=== PATIENT | female | born 1990 | race Two or more races ===

== ENCOUNTER → 2020-04-23 | Outpatient (CLI) | payer SELFPAY | LOC: M LABSMTC 09:21 | PROVIDERS: ATTEND Pediatrics | DX: Z20.822 Contact with and (suspected) exposure to COVID-19 (principal) ==

== ENCOUNTER 2020-05-05 05:44 | Emergency (ER) | payer BC, SELFPAY ==
[~2020-05-05] VITALS: Ht 167.6 cm; Wt 99.5 kg
[2020-05-05] MEDS ORDERED: ACETAMINOPHEN 325 MG TAB PO ONE (07:00)
[2020-05-05] MEDS ORDERED: KETOROLAC 30 MG/ML 1ML VIAL IM ONE (07:00)
--- OUTSIDE RECORDS SUMMARY | 2020-05-05 07:09 | CCD ---
Author Author Fabi Murphy Organization Unknown Address [address] [place] [address] Phone Care Team Providers Care Slot Key Person Name Role Phone Angie Murphy PCP Allergies, Adverse Reactions, Alerts No Data in Section Problem List Concept Problem Description Status Start Date Created Date Resolv ed Date Snomed Code F32.9 Unspecified depressive Disorder Active 04/27/19 21 F41.9 Unspecified Anxiety Disorder Active 04/27/2020 Medications No Data in Section Social History Social History Element Description Concept Effective Date Smoking Status Unknown if ever smoked [id number] Immunizations No Data in Section Vital Signs No Data in Section Procedures Date Concept Id Description Targeted Site Concept Targeted Site Concept Type 04/26/2020 77124 Extended Individual Psychotherapy - 45 min CPT Patient has no history of implantable de vices Encounters Encounter Start Date End Date Encounter Type Description Diagnosis Di agnosis Desc Location Author First Name Author Last Name Npid Taxonomy Cod e Taxonomy Desc Phone Number Location Addr1 Location Addr2 Location [facility] Location [facility] Location [facility] [id number] 04/26/2020 04/26/2020 27855 Extended Individual Psych otherapy - 45 min F32.9 Major depressive disorder, single episode, unspecified [facility] Jeffrey Adams [id number] [id number] 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
--- OUTSIDE RECORDS SUMMARY | 2020-05-05 07:09 | CCD ---
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 Equipment Mechanic Name Role Phone Angie Murphy PCP Allergies, Adverse Reactions, Alerts No Data in Section Problem List Concept Problem Description Status Start Date Created Date Resolv ed Date Snomed Code F32.9 Unspecified depressive Disorder Active 04/13/19 21 F41.9 Unspecified Anxiety Disorder Active 04/13/2020 Medications No Data in Section Social History Social History Element Description Concept Effective Date Smoking Status Unknown if ever smoked [id number] Immunizations No Data in Section Vital Signs No Data in Section Procedures Date Concept Id Description Targeted Site Concept Targeted Site Concept Type 04/13/2020 52570 Extended Individual Psychotherapy - 45 min CPT Patient has no history of implantable de vices Encounters Encounter Start Date End Date Encounter Type Description Diagnosis Di agnosis Desc Location Author First Name Author Last Name Npid Taxonomy Cod e Taxonomy Desc Phone Number Location Addr1 Location Addr2 Location [facility] Location [facility] Location Zip [id number] 04/13/2020 04/13/2020 79525 Extended Individual Psych otherapy - 45 min F32.9 Major depressive disorder, single episode, unspecified [facility] Jeffrey Adams 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
--- OUTSIDE RECORDS SUMMARY | 2020-05-05 07:09 | CCD ---
Author Author Fabi Murphy Organization Unknown Address [address] [place] [address] Phone Care Team Providers Care Valving Machine Operator Name Role Phone Angie Murphy PCP Allergies, Adverse Reactions, Alerts No Data in Section Problem List Concept Problem Description Status Start Date Created Date Resolv ed Date Snomed Code F32.9 Unspecified depressive Disorder Active 03/23/20 20 Medications No Data in Section Social History Social History Element Description Concept Effective Date Smoking Status Unknown if ever smoked [id number] Immunizations No Data in Section Vital Signs No Data in Section Procedures Date Concept Id Description Targeted Site Concept Targeted Site Concept Type 03/22/2020 18296 Psychiatric Diagnostic Evaluation (Non-Medical) CPT Patient has no history of implantable de vices Encounters Encounter Start Date End Date Encounter Type Description Diagnosis Di agnosis Desc Location Author First Name Author Last Name Npid Taxonomy Cod e Taxonomy Desc Phone Number Location Addr1 Location Addr2 Location [facility] Location [facility] Location [facility] [id number] 03/22/2020 03/22/2020 44035 Psychiatric Paula gnostic Evaluation (Non-Medical) F32.9 Major depressive disorder, single episod e, unspecified [facility] Jeffrey Bernsteinica 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
--- OUTSIDE RECORDS SUMMARY | 2020-05-05 07:09 | CCD | Continuity of Care Document ---
Author Author Fabi BETH Organization Unknown Address [address] [place] [address] [place] [address] Phone [phone] Care Team Providers Care Art Dealer Name Role Phone [employer] AUTM [phone] Problems Description No Information Available Social History Type Date Description Comments Sex Unknown ETOH Use Occasionally consumes alcohol Tobacco Use Start: Unknown End: Unknown Patient is a former smoker Smoking Status Reviewed: 03/21/20 Patient is a former smoker Allergies, Adverse Reactions, Alerts Active Allergies Reaction Severity Comments Date Penicillins 11/20/2019 Medications Active Medications SIG Qnty Indications Ordering Provide r Date Nexplanon 68mg Implant Unknown Immunizations CPT Code Status Date Vaccine Lot # [id number] Given 11/18/2019 PPD- TB Intradermal Test [id number] Vital Signs Date Vital Result Comment 03/21/2020 9:21am BP Systolic 118 mmHg BP Diastolic 79 mmHg Heart Rate 85 /min Respiratory Rate 16 /min O2 % BldC Oximetry 98 % Body Temperature 98.1 F Weight 215.00 lb Height 67 inches 5'7" BMI (Body Mass Index) 33.7 kg/m2 Pain Level 5 11/20/2019 6:26pm BP Systolic 112 mmHg BP Diastolic 68 mmHg Heart Rate 97 /min Respiratory Rate 18 /min O2 % BldC Oximetry 99 % Body Temperature 98.5 F Weight 217.00 lb Height 65 inches 5'5" BMI (Body Mass Index) 36.1 kg/m2 Results Description No Information Available Procedures Description No Information Available Medical Devices Description No Information Available Encounters Type Date Location Provider Dx Diagnosis Office Visit 03/21/2020 9:05a Main Office Genoveva Beth NP J06. 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 1 Encounter for pre-employment examination Assessments Date Code Description Provider 03/21/2020 J06.9 Acute upper respiratory infectio n, unspecified Genoveva Beth NP 03/21/2020 Z20.828 Contact with and (solis spected) exposure to other viral communicable diseases Genoveva Beth NP 03/21/2020 B00.1 Herpesviral vesicular dermatitis Genoveva Beth NP 11/20/2019 Z02.1 Encounter for pre-employment exa mination Genoveva Beth NP 11/18/2019 Z11.1 Encounter for screening for resp iratory tuberculosis Genoveva Beth NP Plan of Treatment No Information Available Functional Status Description No Information Available Mental Status Description No Information Available Referrals Description No Information Available
--- OUTSIDE RECORDS SUMMARY | 2020-05-05 07:10 | CCD | Continuity of Care Document ---
Author Author [facility] Organization [facility] Address Unknown Phone Unavailable Care Team Providers Care Insulation Batting Machine Operator Name Role Phone Gisell Yuen MD Unavailable Unavailable Allergies, Adverse Reactions, Alerts Substance Reaction Status Criticality Penicillins Active No Information Medications Medication Instructions Dosage Effective Dates (start - stop) Sta tus Comments Nexplanon 68 mg subdermal implant 68mg Subdermal Implant - Active Problems Condition Effective Dates (start - stop) Clinical Status C omments Body mass index (BMI) 33.0-33.9, adult - Body mass index (BMI) 33.0-33.9, adult - Encounter for test, result negative Low grade intrepith lesion cyto smr crvx (LGSIL) Human immunodeficiency virus [HIV] counseling Other sex counseling Encounter for oth general cnsl and advice on contraception 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/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 Encntr screen for infections w sexl mode of transmiss Enctr srvlnc implantable subdermal contraceptive Anxiety disorder, unspecified Human immunodeficiency virus [HIV] counseling Other sex counseling Encounter for oth general cnsl and advice on contraception Encounter for test, result negative Encounter for removal of intrauterine contraceptive device Enctr for init prescription of implntbl subdermal contracep Encounter for prescription of emergency contraception Encntr screen for infections w sexl mode of transmiss High risk heterosexual behavior Human immunodeficiency virus [HIV] counseling Encntr screen for infections w sexl mode of transmiss Other sex counseling Dysuria Encounter for oth general cnsl and advice on contraception Encounter for prescription of emergency contraception Encntr screen for infections w sexl mode of transmiss Human immunodeficiency virus [HIV] counseling Dysuria Encounter for oth general cnsl and advice on contraception High risk heterosexual behavior Acute vaginitis Acute cystitis without hematuria Other specified noninflammatory disorders of vagina Cervicovaginal cytology: Low grade squamous intraepith elial lesion - Active Procedures Procedure Date No Information Results Test Name Date and Time Measure Units Reference Range Abnormal Flag St atus Comments No Information Advance Directives Directive Yes / No Effective Date File Name No Information Encounters Encounter Description Practice Location Reason(s) For Visit Diagnose s Date Provider Providers Copied on Encounter [facility], [address] [place] [address], [id number], tel:[phone] MILKA Piper No Information Wilfrid Gisell. [address] [place] [address], [id number], [place]. tel:[phone] [facility], [address] [place] [address], [id number], tel:[phone] MILKA [place] Encounter for pregn thomas test, result negativeLow grade intrepith lesion cyto smr crvx (LGSIL) Snell. [address] [place] [address], [id number], [place]. tel:[phone] Referring Provider: Kamilla Motta, [address] [place] [address], [id number]. tel:[phone] [facility], [address] [place] [address], [id number], tel:[phone] TASHINCCAN Kidd Human immunodeficie ncy virus [HIV] counselingOther sex counselingEncounter for oth general cnsl and advice on contraception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/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Encntr screen for infections w sexl mode of transmissEnctr srvlnc implantable subdermal contraceptiveBody mass index (BMI) 33.0-33.9, adultAnxiety disorder, unspecified Pravin Pham. [address] [place] [address], [id number]. tel:[phone] Referring Provider: Vero Costello, [address] [place] [address], [id number]. tel:[phone] [facility] [place], [address] [place] [address], [id number], [place] tel:[phone] [facility] [place] Human immunodeficie ncy virus [HIV] counselingOther sex counselingEncounter for oth general cnsl and advice on contraceptionEncounter for test, result negativeEncounter for removal of intrauterine contraceptive deviceEnctr for init prescription of implntbl subdermal contracepEncounter for prescription of emergency contraceptionEncntr screen for infections w sexl mode of transmissHigh risk heterosexual behavior Tata Mendoza. [address] [place] [address], [id number], [place]. tel:[phone] Referring Provider: Kelly Payton, [address] [place] [address], [id number]. tel:[phone] [facility] [place], [address] [place] [address], [id number], [place] tel:[phone] [facility] [place] Human immunodeficie ncy virus [HIV] counselingEncntr screen for infections w sexl mode of transmissOther sex counselingDysuriaEncounter for oth general cnsl and advice on contraception Lisette Urban. [address] [place] [address], [id number], [place]. tel:[phone] Referring Provider: Rajni Knox, [address] [place] [address], [id number]. tel:[phone] [facility] [place], [address] [place] [address], [id number], [place] tel:[phone] [facility] [place] Encounter for presc ription of emergency contraception Lisette Urban. [address] [place] [address], [id number], [place]. tel:[phone] [facility] [place], [address] [place] [address], [id number], [place] tel:[phone] MILKA Kidd Encntr screen for i nfections w sexl mode of transmissHuman immunodeficiency virus [HIV] counselingDysuriaBody mass index (BMI) 33.0-33.9, adultEncounter for oth general cnsl and advice on contracepti onHigh risk heterosexual behaviorAcute vaginitisAcute cystitis without hematuriaOther specified noninflammatory disorders of vagina Lianna Randle. [address] [place] [address], [id number], . tel:[phone] Referring Provider: Razia Dsouza, [address] [place] [address], [id number]. tel:[phone] Family History Family Member Diagnosis Age At Onset 1st degree relative No hx of cancer of breast, colon, endome trium or ovary 1st degree relative No hx of venous thromboembolism 1st degree relative No hx of coronary heart disease (female <65, male <55) 1st degree relative No hx of osteoporosis Immunizations Vaccine Date Status Comments No Information Payers Payer name Insurance type Covered alliance party ID Authorization(s ) [facility] [id number] [facility] [id number] Social History Type Description Quantity Date Captured Comments Alcohol Use Details Unknown Caffeine Use Details Unknown Tobacco Use Status No Information Smoking Status Never smoker Sex Female Vital Signs Date / Time: Height Weight BMI Pulse Rate Blood Pressure Temperatu re Respiratory Rate Body Surface Area Head Circumference BMI percentile Pulse Ox In haled Ox No Information Chief Complaint And Reason For Visit No Information Reason For Referral Reason For Referral No Information Plan Of Treatment Date Type Action Status Goal Dietary management education, gu idance, and counseling completed Goal Lifestyle education regarding di et completed Referral Ordered: Referrals: Mental Health. Evaluate and treat Appointment date/timeframe: 2 Months ordered History Of Present Illness Encounter Date Complaint History Of Present I llness No Information Functional Status Date Functional Assessment No Information Medications Administered Medication Instructions Dosage Effective Dates (start - stop) Sta tus Comments No Information Instructions Date Instruction Additional Informati on Dietary management education, guidance, and counseling Related to Body mass index (BMI) 33.0-33.9, adult Giving encouragement to exercise Related to Body mass index (BMI) 33.0-33.9, adult Lifestyle education regarding diet Relat ed to Body mass index (BMI) 33.0-33.9, adult Assessments Type Assessment Date No Information Goals Health Concern Goal Type Priority Status Date No Information Medical Equipment Description Device [place] Device Identifier Effective Adair es (start - stop) Status No Information Mental Status Date Cognitive Assessment No Information Health Concerns Observation Date No Information Concern Status Date No Information Physical Examination Exam Findings Details No Information
--- OUTSIDE RECORDS SUMMARY | 2020-05-05 07:10 | CCD ---
Author Author [facility] Address Unknown Phone Unavailable Care Team Providers Care Ct Scan Technician Name Role Phone FabyPrince Unavailable Unavailable Wilfrid, Tamie Jameson MD Unavailable Unavailable Wilfrid, Tamie Jameson MD Unavailable Unavailable Wilfrid, Tamie Jameson MD Unavailable Unavailable Wilfrid, Tamie Jameson MD Unavailable Unavailable Wilfrid, Tamie Jameson MD Unavailable Unavailable Wilfrid, Tamie Jameson MD Unavailable Unavailable Wilfrid, Tamie Jameson MD Unavailable Unavailable Wilfrid, Tamie Jameson MD Unavailable Unavailable Wilfrid, Tamie Jameson MD Unavailable Unavailable Wilfrid, Tamie Jameson MD Unavailable Unavailable Wilfrid, Tamie Jameson MD Unavailable Unavailable Wilfrid, Tamie Jameson MD Unavailable Unavailable Wilfrid, Tamie Jameson MD Unavailable Unavailable Wilfrid, Tamie Jameson MD Unavailable Unavailable Wilfrid, Tamie Jameson MD Unavailable Unavailable Wilfrid, Tamie Jameson MD Unavailable Unavailable Wilfrid, Tamie Jameson MD Unavailable Unavailable Wilfrid, Tamie Jameson MD Unavailable Unavailable Wilfrid, Tamie Jameson MD Unavailable Unavailable Wilfrid, Tamie Jameson MD Unavailable Unavailable Wilfrid, Tamie Jameson MD Unavailable Unavailable Wilfrid, Tamie Jameson MD Unavailable Unavailable Wilfrid, Tamie Jameson MD Unavailable Unavailable Wilfrid, Tamie Jameson MD Unavailable Unavailable Wilfrid, Tamie Jameson MD Unavailable Unavailable Wilfrid, Tamie Jameson MD Unavailable Unavailable Wilfrid, Tamie Jameson MD Unavailable Unavailable Wilfird, Tamie Jameson MD Unavailable Unavailable Wilfrid, Tamie Jameson MD Unavailable Unavailable Wilfrid, Tamie Jameson MD Unavailable Unavailable Wilfrid, Tamie Jameson MD Unavailable Unavailable Wilfrid, Tamie Jameson MD Unavailable Unavailable Wilfrid, Tamie Jameson MD Unavailable Unavailable Wilfrid, Tamie Jameson MD Unavailable Unavailable Wilfrid, Tamie Jameson MD Unavailable Unavailable Wilfrid, Tamie Jameson MD Unavailable Unavailable Wilfrid, Tamie Jameson MD Unavailable Unavailable Wilfrid, A Gisell CATHERINE Unavailable Unavailable Wilfrid, A Gisell CATHERINE Unavailable Unavailable Wilfrid, A Gisell CATHERINE Unavailable Unavailable Wilfrid, A Gisell CATHERINE Unavailable Unavailable Wilfrid, A Gisell CATHERINE Unavailable Unavailable Wilfrid, A Gisell CATHERINE Unavailable Unavailable Wilfrid, A Gisell CATHERINE Unavailable Unavailable Wilfrid, A Gisell CATHERINE Unavailable Unavailable Wilfrid, A Gisell CATHERINE Unavailable Unavailable Wilfrid, A Gisell CATHERINE Unavailable Unavailable Wilfrid, A Gisell CATHERINE Unavailable Unavailable Wilfrid, A Gisell CATHERINE Unavailable Unavailable Wilfrid, A Gisell CATHERINE Unavailable Unavailable Wilfrid, A Gisell CATHERINE Unavailable Unavailable Wilfrid, A Gisell CATHERINE Unavailable Unavailable Wilfrid, A Gisell CATHERINE Unavailable Unavailable Wilfrid, A Gisell CATHERINE Unavailable Unavailable Wilfrid, A Gisell CATHERINE Unavailable Unavailable Wilfrid, A Gisell CATHERINE Unavailable Unavailable Wilfrid, A Gisell CATHERINE Unavailable Unavailable Wilfrid, A Gisell CATHERINE Unavailable Unavailable Wilfrid, A Gisell CATHERINE Unavailable Unavailable Wilfrid, A Gisell CATHERINE Unavailable Unavailable Wilfrid, A Gisell CATHERINE Unavailable Unavailable Wilfrid, A Gisell CATHERINE Unavailable Unavailable Wilfrid, A Gisell CATHERINE Unavailable Unavailable Wilfrid, A Gisell CATHERINE Unavailable Unavailable Wilfrid, A Gisell CATHERINE Unavailable Unavailable Wilfrid, A Gisell CATHERINE Unavailable Unavailable Wilfrid, A Gisell CATHERINE Unavailable Unavailable Wilfrid, A Gisell CATHERINE Unavailable Unavailable Wilfrid, A Gisell CATHERINE Unavailable Unavailable Wilfrid, A Gisell CATHERINE Unavailable Unavailable Wilfrid, A Gisell CATHERINE Unavailable Unavailable Wilfrid, A Gisell CATHERINE Unavailable Unavailable Wilfrid, A Gisell CATHERINE Unavailable Unavailable Wilfrid, A Gisell CATHERINE Unavailable Unavailable Wilfrid, A Gisell CATHERINE Unavailable Unavailable CristSheryl fitchothy PA Unavailable Unavailable DARIAN, E ISIDRO HEALTHCARE ANALYST Unavailable Unavailable DARIAN, E ISIDRO HEALTHCARE ANALYST Unavailable Unavailable DARIAN, E ISIDRO HEALTHCARE ANALYST Unavailable Unavailable DARIAN, E ISIDRO HEALTHCARE ANALYST Unavailable Unavailable DARIAN, E ISIDRO HEALTHCARE ANALYST Unavailable Unavailable DARIAN, E ISIDRO HEALTHCARE ANALYST Unavailable Unavailable DARIAN, E ISIDRO HEALTHCARE ANALYST Unavailable Unavailable DARIAN, E ISIDRO HEALTHCARE ANALYST Unavailable Unavailable DARIAN, E ISIDRO HEALTHCARE ANALYST Unavailable Unavailable DARIAN, E ISIDRO HEALTHCARE ANALYST Unavailable Unavailable DARIAN, E ISIDRO HEALTHCARE ANALYST Unavailable Unavailable DARIAN, E ISIDRO HEALTHCARE ANALYST Unavailable Unavailable DARIAN, E ISIDRO HEALTHCARE ANALYST Unavailable Unavailable Sheryl Salvador León Unavailable + Sheryl Salvador León Unavailable + Sheryl Salvador León Unavailable + Sheryl Salvador León Unavailable + Cristman, J León Unavailable Cristman, J León Unavailable Cristman, J Lenó Unavailable Cristman, J León Unavailable Cristman, J León Unavailable Cristman, J León Unavailable Cristman, J León Unavailable Cristman, J León Unavailable Cristman, J León Unavailable Cristman, J León Unavailable Cristman, J León Unavailable Cristman, J León Unavailable Cristman, J León Unavailable Costello, E Vero BIOLOGIST Unavailable Unavailable [place], E Vero BIOLOGIST Unavailable Unavailable [place], E Vero BIOLOGIST Unavailable Unavailable [place], E Vero BIOLOGIST Unavailable Unavailable [place], E Vero BIOLOGIST Unavailable Unavailable [place], E Vero BIOLOGIST Unavailable Unavailable [place], E Vero BIOLOGIST Unavailable Unavailable [place], E Vero BIOLOGIST Unavailable Unavailable [place], E Vero BIOLOGIST Unavailable Unavailable [place], E Vero BIOLOGIST Unavailable Unavailable [place], E Vero BIOLOGIST Unavailable Unavailable [place], E Vero BIOLOGIST Unavailable Unavailable [place], E Vero BIOLOGIST Unavailable Unavailable [place], E Vero BIOLOGIST Unavailable Unavailable [place], E Vero BIOLOGIST Unavailable Unavailable [place], E Vero BIOLOGIST Unavailable Unavailable Leykin, Prince DO Unavailable Unavailable Carmona, Genoveva HEALTHCARE ANALYST Unavailable Unavailable Carmona, Genoveva HEALTHCARE ANALYST Unavailable Unavailable Carmona, Genoveva HEALTHCARE ANALYST Unavailable Unavailable Carmona, Genoveva HEALTHCARE ANALYST Unavailable Unavailable Carmona, Genoveva HEALTHCARE ANALYST Unavailable Unavailable Carmona, Genoveva HEALTHCARE ANALYST Unavailable Unavailable Carmona, Genoveva HEALTHCARE ANALYST Unavailable Unavailable Carmona, Genoveva HEALTHCARE ANALYST Unavailable Unavailable Carmona, Genoveva HEALTHCARE ANALYST Unavailable Unavailable Carmona, Genoveva HEALTHCARE ANALYST Unavailable Unavailable Carmona, Genoveva HEALTHCARE ANALYST Unavailable Unavailable Sheryl Payton PA Unavailable Unavailable Sheryl Payton PA Unavailable Unavailable Cordova, J Kelly PA Unavailable Unavailable Tata, Sheryl Mendoza PA Unavailable Unavailable Cordova, Sheryl Mendoza PA Unavailable Unavailable Cordova, Sheryl Mendoza PA Unavailable Unavailable Cordova, Sheryl Mendoza PA Unavailable Unavailable Cordova, Sheryl Mendoza PA Unavailable Unavailable Cordova, Sheryl Mendoza PA Unavailable Unavailable Cordova, Sheryl Mendoza PA Unavailable Unavailable Cordova, Sheryl Mendoza PA Unavailable Unavailable Cordova, Sheryl Mendoza PA Unavailable Unavailable Cordova, Sheryl Mendoza PA Unavailable Unavailable Cordova, Sheryl Mendoza PA Unavailable Unavailable Cordova, Sheryl Mendoza PA Unavailable Unavailable Cordova, Sheryl Mendoza PA Unavailable Unavailable Cordova, Sheryl Mendoza PA Unavailable Unavailable Cordova, Sheryl Mendoza PA Unavailable Unavailable Cordova, Sheryl Mendoza PA Unavailable Unavailable Cordova, Sheryl Mendoza PA Unavailable Unavailable Cordova, Sheryl Mendoza PA Unavailable Unavailable Cordova, Sheryl Mendoza PA Unavailable Unavailable GoutAngie aldana Unavailable DUANA, H AMADOR HEALTHCARE ANALYST Unavailable Unavailable DUANA, H AMADOR HEALTHCARE ANALYST Unavailable Unavailable DUANA, H AMADOR HEALTHCARE ANALYST Unavailable Unavailable DUANA, H AMADOR HEALTHCARE ANALYST Unavailable Unavailable DUANA, H AMADOR HEALTHCARE ANALYST Unavailable Unavailable DUANA, H AMADOR HEALTHCARE ANALYST Unavailable Unavailable DUANA, H AMADOR HEALTHCARE ANALYST Unavailable Unavailable DUANA, H AMADOR HEALTHCARE ANALYST Unavailable Unavailable DUANA, H AMADOR HEALTHCARE ANALYST Unavailable Unavailable DUANA, H AMADOR HEALTHCARE ANALYST Unavailable Unavailable DUANA, H AMADOR HEALTHCARE ANALYST Unavailable Unavailable DUANA, H AMADOR HEALTHCARE ANALYST Unavailable Unavailable DUANA, H AMADOR HEALTHCARE ANALYST Unavailable Unavailable Bijal, Shweta Kamilla HEALTHCARE ANALYST Unavailable Unavailable Bijal, Shweta Kamilla HEALTHCARE ANALYST Unavailable Unavailable Bijal, Shweta Kamilla HEALTHCARE ANALYST Unavailable Unavailable Bijal, Shweta Kamilla HEALTHCARE ANALYST Unavailable Unavailable Bijal, Shweta Kamilla HEALTHCARE ANALYST Unavailable Unavailable Bijal, Shweta Kamilla HEALTHCARE ANALYST Unavailable Unavailable Bijal, Shweta Kamilla HEALTHCARE ANALYST Unavailable Unavailable Bijal, Shweta Kamilla HEALTHCARE ANALYST Unavailable Unavailable Bijal, Shweta Kamilla HEALTHCARE ANALYST Unavailable Unavailable Bijal, Shweta Kamilla HEALTHCARE ANALYST Unavailable Unavailable Re-disclosure Warning The records that you are about to access may contain information from federally-assisted alcohol or drug abuse programs. If such information is present, then the following federally mandated warning applies: This information has been disclosed to you from records protected by federal confidentiality rules (42 CFR part 2). The federal rules prohibit you from making any further disclosure of this information unless further disclosure is expressly permitted by the written consent of the person to whom it pertains or as otherwise permitted by 42 CFR part 2. A general authorization for the release of medical or other information is NOT sufficient for this purpose. The Federal rules restrict any use of the information to criminally investigate or prosecute any alcohol or drug abuse patient.The records that you are about to access may contain highly sensitive health information, the redisclosure of which is protected by Article 27-F of the [facility] Public Health law. If you continue you may have access to information: Regarding HIV / AIDS; Provided by facilities licensed or operated by the [facility] Office of Mental Health; or Provided by the [facility] Office for People With Developmental Disabilities. If such information is present, then the following [facility] mandated warning applies: This information has been disclosed to you from confidential records which are protected by state law. State law prohibits you from making any further disclosure of this information without the specific written consent of the person to whom it pertains, or as otherwise permitted by law. Any unauthorized further disclosure in violation of state law may result in a fine or fci sentence or both. A general authorization for the release of medical or other information is NOT sufficient authorization for further disc losure. Allergies and Adverse Reactions Type Description Substance Reaction Status Data Source(s ) Drug allergy Drug allergy Penicillins Unknown Reaction [facility] Encounters Encounter Providers Location Date Indications Data Source(s ) Extended Individual Psychotherapy - 45 min Attender: Jaylyn ca [facility] 04/26/2020 04:15:00 AM EST - 04/26/2020 04:15:00 AM EST [facility] ([facility]) Attender: Angie Murphy 04/26/2020 12:00:0 0 AM EST [facility] ([facility]) Extended Individual Psychotherapy - 45 min Attender: Jaylyn traylor [facility] 04/13/2020 08:00:00 AM EST - 04/13/2020 08:00:00 AM EST [facility] ([facility]) Attender: Angie Murphy 04/13/2020 12:00:0 0 AM EST [facility] ([facility]) Psychiatric Diagnostic Evaluation (Non-Medical) Attender: Waqas Murphy [facility] 03/22/2020 05:00:00 AM EST - 03/22/2020 05:00:00 AM EST [facility] ([facility]) Attender: Angie Murphy 03/22/2020 12:00:0 0 AM EST [facility] ([facility]) Outpatient Attender: Genoveva ramirez 03/21/2020 08:05:00 AM EST [facility] ([facility]) Attender: Gisell Piper 1 04/25/2019 02:05:00 PM EST - 02/24/2020 02:05:00 PM EST [facility] ([facility]) Attender: Kamilla Garza 1 04/11/2019 11:30:00 AM EST - 02/10/2020 11:30:00 AM EST Low grade intrepith lesion cyto smr crvx (LGSIL)Encounter for test, result negative [facility] ([facility]) Low grade intrepith lesion cyto smr crvx (LGSIL) Encounter for test, result neg ative Attender: Gisell Piper 1 02:36:00 PM EDT - 01/25/2020 02:36:00 PM EDT [facility] ([facility]) Attender: Gisell Garza 11/2019 01:24:00 PM EDT - 12/15/2019 01:24:00 PM EDT [facility] ([facility]) Attender: Gisell Garza 04/2019 02:56:00 PM EDT - 12/08/2019 02:56:00 PM EDT [facility] ([facility]) Attender: Gisell Garza 01:48:00 PM EDT - 12/04/2019 01:48:00 PM EDT [facility] ([facility]) Attender: ISIDRO FARMER NICHOLE Piper 10:53:00 AM EDT - 12/03/2019 10:53:00 AM EDT [facility] ([facility]) Outpatient Attender: Genoveva Ramirez ashley 11/20/2019 05:30:00 PM EDT [facility] ([facility]) Attender: Vero Kidd 11/06 07:14:00 AM EDT - 11/20/2019 07:14:00 AM EDT [facility] ([facility]) OutpatientPREV VISIT, EST, AGE 18-39 Attender: Vero Kidd 11/17/2019 10:45:00 AM EDT - 11/17/2019 10:45:00 AM EDT Body mass index (BMI) 33.0-33.9, adultAnxiety disorder, unspecifiedEnctr srvlnc implantable subdermal contraceptiveEncntr screen for infections w sexl mode of transmissEncntr for electrical parts reconditioner exam (general) (routine) w/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Encounter for oth general cnsl and advice on contraceptionOther sex counselingHuman immunodeficiency virus [HIV] counseling [facility] ([facility]) Body mass index (BMI) 33.0-33.9, adult Anxiety disorder, unspecified Enctr srvlnc implantable subdermal contr aceptive Encntr screen for infections w sexl mode of transmiss Encntr for electrical parts reconditioner exam (general) (routine) w/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 Encounter for oth general cnsl and advic e on contraception Other sex counseling Human immunodeficiency virus [HIV] couns [facility] Without Test Attender: Kelly Garza 03/2020 10:45:00 AM EDT - 09/18/2019 10:45:00 AM EDT High risk heterosexual behaviorEncntr screen for infections w sexl mode of transmissEncounter for prescription of emergency contraceptionEnctr for init prescription of implntbl subdermal contracepEncounter for removal of intrauterine contraceptive deviceEncounter for test, result negativeEncounter for oth general cnsl and advice on contraceptionOther sex counselingHuman immunodeficiency virus [HIV] counseling [facility] ([facility]) High risk heterosexual behavior Encntr screen for infections w sexl mode of transmiss Encounter for prescription of emergency contraception Enctr for init prescription of implntbl subdermal contracep Encounter for removal of intrauterine co ntraceptive device Encounter for test, result neg ative Encounter for oth general cnsl and advic e on contraception Other sex counseling Human immunodeficiency virus [HIV] couns [facility] Outpatient Attender: León MENDESttender: Afshin pangareli Rexlittle CPSCAORT-LABPNP 09/14/2019 12:30:00 PM EDT - 09/14/2019 12:31:00 PM ED T COVID SCREENING [facility] COVID SCREENING Patient discharged. Attender: AMADOR Kidd 05/09 09:45:00 AM EST - 05/22/2019 09:45:00 AM EST Encounter for oth general cnsl and advic e on contraceptionDysuriaOther sex counselingEncntr screen for infections w sexl mode of transmissHuman immunodeficiency virus [HIV] counseling [facility] ([facility]) Encounter for oth general cnsl and advic e on contraception Dysuria Other sex counseling Encntr screen for infections w sexl mode of transmiss Human immunodeficiency virus [HIV] [facility] Attender: Prince Hobbs DOAttender: Prince riojas DO CPSCAORT-ED 04/22/2019 08:32:00 PM EST - 04/22/2019 11:07:00 PM EST FLU SYMPTOMS [facility] FLU SYMPTOMS Patient discharged. Attender: AMADOR Kidd 08/2018 04:06:00 PM EST - 03/12/2019 04:06:00 PM EST Encounter for prescription of emergency contraception [facility] ([facility]) Encounter for prescription of emergency contraception Immunizations Vaccine Date Status Description Data Source(s) TB Skin test is not vaccine. 11/18/2019 05:33:00 PM EDT completed [facility] ([facility]) Medications Medication Brand Name Start Date Product Form Dose Route Admi nistrative Instructions Pharmacy Instructions Status Indications Reaction Description Data Source(s) PPD- TB Intradermal Test 11/18/2019 12:00:00 AM EDT completed [facility] ([facility]) Medication administered onsite Etonogestrel 68 MG Drug Implant [Nexplanon] Nexplanon 68 mg subdermal implant Nexplanon 68 mg subdermal implant 09/18/2019 12:00:00 AM EDT active etonogestrel 68 MG Drug Implant [Nexplanon] [facility] ([facility]) Levonorgestrel 1.5 MG Oral Tablet [EContra] Econtra On e-Step 1.5 mg tablet Econtra One-Step 1.5 mg tablet 09/18/2019 12:00:00 AM EDT completed Levonorgestrel 1.5 MG Oral Tablet [EContra] [facility] ([facility] Levonorgestrel 0.601635 MG/HR Drug Impla nt [Mirena] Mirena 20 mcg/24 hours (5 yrs) 52 mg intrauterine device Mirena 20 mcg/24 hours (5 yrs) 52 mg int rauterine device completed Levono rgestrel 0.908601 MG/HR Intrauterine System [Mirena] [facility] ([facility]) Insurance Providers Payer name Policy type / Coverage type Policy ID Covered green party ID Covered green party's relationship to rivero Policy [employer] Plan Information BCBS HAYLIE VALENZUELA PPO 302/[phone] [id number] SP [id number] SELF PAY ONLY SELF PAY S BCBS Excellus Mcgregor [id number] self [id number] MEDICAID [id number] S [id number] Problems, Conditions, and Diagnoses Code Display Name Description Problem Type Effective Dates Data Source(s) F41.9 Anxiety disorder, unspecified Unspecified Anxiety Diso rder Condition 04/26/2020 12:00:00 AM EST [facility] ([facility]) F32.9 Major depressive disorder, single episod e, unspecified Unspecified depressive Disorder Condition 04/26/2020 12:00:00 AM EST [facility] ( [facility]) [id number] Cervicovaginal cytology: Low grade squam ous intraepithelial lesion Cervicovaginal cytology: Low grade squamous intraepithelial lesion Problem 11/17/2019 12:00:00 AM EDT [facility] ([facility]) Z11.59 Encounter for screening for other viral diseases ENCOUNTER FOR SCREENING FOR OTHER VIRAL DISEASES Diagnosis 09/14/2019 12:30:00 PM EDT [facility] F17.200 Nicotine dependence, unspecified, uncomp licated NICOTINE DEPENDENCE, UNSPECIFIED, UNCOMPLICATED Diagnosis 04/22/2019 08:32:00 PM [facility] J11.1 Influenza due to unidentifie d influenza virus with other respiratory manifestations FLU DUE TO UNIDENTIFIED INFLUENZA VIRUS W OTH RESP MAN IFEST Diagnosis 04/22/2019 08:32:00 PM [facility] Surgeries/Procedures Procedure Description Date Indications Data Source(s) Extended Individual Psychotherapy - 45 min 04/26/2020 12:00:00 AM EST - 04/26/2020 12:00:00 AM EST [facility] ([facility]) Extended Individual Psychotherapy - 45 min 12:00:00 AM EST [facility] ([facility]) Extended Individual Psychotherapy - 45 min 04/13/2020 12:00:00 AM EST - 04/13/2020 12:00:00 AM EST [facility] ([facility]) Extended Individual Psychotherapy - 45 min 12:00:00 AM EST [facility] ([facility]) Psychiatric Diagnostic Evaluation (Non-Medical) 03/22/2020 12:00:00 AM EST - 03/22/2020 12:00:00 AM EST [facility] ([facility]) Psychiatric Diagnostic Evaluation (Non-Medical) 2019 12:00:00 AM EST [facility] ([facility]) URINE TEST 02/10/2020 12:00:00 AM EST - 02/10/2020 12:00:00 AM EST [facility] ([facility]) CVR Computer Applications Engineer.Svc. STI / H 02/10/2020 12:00:00 AM EST - 02/10/2020 12:00:00 AM EST [facility] ([facility]) CVR Computer Applications Engineer.Svc. Other 02/10/2020 12:00:00 AM EST - 2019 12:00:00 AM EST [facility] ([facility]) CVR Computer Applications Engineer.Svc. Contraceptive 02/10/2020 12 :00:00 AM EST - 02/10/2020 12:00:00 AM EST [facility] ([facility]) CVR Med.Svc. Height/Weight 02/10/2020 12 :00:00 AM EST - 02/10/2020 12:00:00 AM EST [facility] ([facility]) CVR Blood Pressure 02/10/2020 12:00:00 AM EST - 2019 12:00:00 AM EST [facility] ([facility]) BX/CURETT OF CERVIX W/SCOPE 02/10/2020 1 2:00:00 AM EST - 02/10/2020 12:00:00 AM EST [facility] ([facility]) CVR Computer Applications Engineer.Svc. STI / H 11/17/2019 12:00:00 AM EDT - 11/17/2019 12:00:00 AM EDT [facility] ([facility]) CVR Computer Applications Engineer.Svc. Other 11/17/2019 12:00:00 AM EDT - 2019 12:00:00 AM EDT [facility] ([facility]) CVR Computer Applications Engineer.Svc. Contraceptive 11/17/2019 12 :00:00 AM EDT - 11/17/2019 12:00:00 AM EDT [facility] ([facility]) CVR Med.Svc. 2-10 Female Full Exam Panel 11/17/2019 12:00:00 AM EDT - 11/17/2019 12:00:00 AM EDT [facility] ([facility]) CVR Med.Svc. Other 11/17/2019 12:00:00 AM EDT - 2019 12:00:00 AM EDT [facility] ([facility]) ROUTINE VENIPUNCTURE 11/17/2019 12:00:00 AM EDT - 11/17/2019 12:00:00 AM EDT [facility] ([facility]) PREV VISIT, EST, AGE 18-39 11/17/2019 12 :00:00 AM EDT - 11/17/2019 12:00:00 AM EDT [facility] ([facility]) N.GONORRHOEAE, Pharyngeal 11/17/2019 12: 00:00 AM EDT - 11/17/2019 12:00:00 AM EDT [facility] ([facility]) CHYLMD TRACH, Pharyngeal 11/17/2019 12:0 0:00 AM EDT - 11/17/2019 12:00:00 AM EDT [facility] ([facility]) CYTOPATH, C/V, THIN LAYER 11/17/2019 12: 00:00 AM EDT - 11/17/2019 12:00:00 AM EDT [facility] ([facility]) N.GONORRHOEAE, SWAB 11/17/2019 12:00:00 AM EDT - 11/16 12:00:00 AM EDT [facility] ([facility]) CHYLMD TRACH, SWAB 11/17/2019 12:00:00 AM EDT - 2019 12:00:00 AM EDT [facility] ([facility]) CVR Computer Applications Engineer.Svc. STI / H 09/18/2019 12:00:00 AM EDT - 09/18/2019 12:00:00 AM EDT [facility] ([facility]) CVR Computer Applications Engineer.Svc. Other 09/18/2019 12:00:00 AM EDT - 2019 12:00:00 AM EDT [facility] ([facility]) CVR Computer Applications Engineer.Svc. Contraceptive 09/18/2019 12 :00:00 AM EDT - 09/18/2019 12:00:00 AM EDT [facility] ([facility]) CVR Med.Svc. Emergency Contraception 03/2020 12:00:00 AM EDT - 09/18/2019 12:00:00 AM EDT [facility] ([facility] [facility]) CVR Med.Svc. Method Cessation 09/18/2019 12:00:00 AM EDT - 09/18/2019 12:00:00 AM EDT [facility] ([facility]) CVR Med.Svc. Method Initiation 0 12:00:00 AM EDT - 09/18/2019 12:00:00 AM EDT [facility] ([facility]) CVR Med.Svc. Height/Weight 09/18/2019 12 :00:00 AM EDT - 09/18/2019 12:00:00 AM EDT [facility] ([facility]) CVR Blood Pressure 09/18/2019 12:00:00 AM EDT - 2019 12:00:00 AM EDT [facility] ([facility]) HCS Without Test 09/18/2019 12:00:00 AM EDT - 09/18/19 20 12:00:00 AM EDT [facility] ([facility]) Nexplanon 09/18/2019 12:00:00 AM EDT - 09/18/2019 1 2:00:00 AM EDT [facility] ([facility]) IMPLANT INSERTION 09/18/2019 12:00:00 AM EDT - 020 12:00:00 AM EDT [facility] ([facility]) E Contra One Step 09/18/2019 12:00:00 AM EDT - 020 12:00:00 AM EDT [facility] ([facility]) Male Condom Latex 09/18/2019 12:00:00 AM EDT - 020 12:00:00 AM EDT [facility] ([facility]) REMOVE INTRAUTERINE DEVICE 09/18/2019 12 :00:00 AM EDT - 09/18/2019 12:00:00 AM EDT [facility] ([facility]) N.GONORRHOEAE, SWAB 09/18/2019 12:00:00 AM EDT - 09/17 12:00:00 AM EDT [facility] ([facility]) CHYLMD TRACH, SWAB 09/18/2019 12:00:00 AM EDT - 2019 12:00:00 AM EDT [facility] ([facility]) [id number] SARS-COV-2 COVID-19 AMP PRB 09/14/2019 12:00:00 AM EDT [facility] IADNA MYCOPLSM PNEUMONIAE AMPLIFIED PROBE TQ M.PNEUMON DNA A MP PROBE 04/22/2019 12:00:00 AM [facility] IADNA CHLAMYDIA PNEUMONIAE AMPLIFIED PROBE TQ CHYLMD PNEUM D NA AMP PROBE 04/22/2019 12:00:00 AM [facility] IADNA NOS AMPLIFIED PROBE TQ EACH ORGANISM DETECT AGENT NOS DNA AMP 04/22/2019 12:00:00 AM [facility] [id number] RESP VIRUS 12-25 TARGETS 04/22/2019 12:00:00 AM [facility] ANTIBODY BORRELIA BURGDORFERI LYME DISEASE LYME DISEASE ANTI BODY 04/22/2019 12:00:00 AM [facility] Non-covered item or service NON-COVERED ITEM OR SERVICE 04/08 12:00:00 AM [facility] COLLECTION VENOUS BLOOD VENIPUNCTURE ROUTINE VENIPUNCTURE 12:00:00 AM [facility] IV INFUSION HYDRATION INITIAL 31 MIN-1 HOUR HYDRATION IV INF USION INIT 04/22/2019 12:00:00 AM [facility] EMERGENCY DEPARTMENT VISIT HIGH/URGENT SEVERITY EMERGENCY DE PT VISIT 04/22/2019 12:00:00 AM [facility] Results ID Date Data Source [id number] 04/23/2020 12:00:00 AM EST [facility] Name Value Range Interpretation Code Description Data Stacey rce(s) Supporting Document(s) SARS-CoV-2 (COVID-19) RNA [Presence] in Respiratory specimen by OLGA with probe detection Not Detected [facility] This lab was ordered by [facility] and reported by [employer] ID Date Data Source [id number] 03/21/2020 12:00:00 AM EST [facility] Name Value Range Interpretation Code Description Data Stacey rce(s) Supporting Document(s) SARS coronavirus 2 Ag [facility] This lab was ordered by [facility] and reported by [facility]. ID Date Data Source [id number] 02/10/2020 11:24:31 AM EST [facility] ([facility]) Name Value Range Interpretation Code Description Data Stacey rce(s) Supporting Document(s) NegativeLot: [id number]: 04/07/2021 High Sensitivity Urine Test [facility] ([facility]) ID Date Data Source [id number] 09/16/2019 04:56:00 PM EDT [facility] Name Value Range Interpretation Code Description Data Stacey rce(s) Supporting Document(s) Respiratory specimen severe acute respir atory syndrome coronavirus 2 (SARS-CoV-2) RNA [facility] This lab was ordered by [facility] sander and reported by [facility]. ID Date Data Source [id number] 09/16/2019 04:55:00 PM EDT [facility] COVID-19 Specimen Source NASOPHARYNGEAL Is Patient admitted or to be admitted? N Name Value Range Interpretation Code Description Data Stacey rce(s) Supporting Document(s) SARS-CoV-2 RNA Negative Normal (applies to non-numeric r esults) [facility] This test has not been FDA cleared or ap proved. This test has been authorized by FDA under an EUA for use by authorized laboratories. This test has been authorized only for detection of nucleic acid from 2019-nCoV, not for any other viruses or pathogens. This test is only authorized for the duration of the declaration that circumstances exist justifying the authorization of emergency use of in vitro diagnostic tests for detection and/or diagnosis of 2019-nCoV under section 564(b)(1) of Act, 21 U.S.C ? 360bbb-3(b) (1), unless the authorization is terminated or revoked sooner. Negative results do not preclude 2019-nCoV infection and should not be used as the sole basis for treatment or other patient management decisions. Negative results must be combined with clinical observations, patient history, and epidemiological information. Performed on the SmartC[employer]her Fusion instrument THIS IS A STATE REPORTABLE COMMUNICABLE DISEASE. Performing Lab Normal (applies to non-numeric r esults) [facility] Is Patient Admitted or Awaiting Admissio n?:N COVID-19 Specimen Source: HEALTHCARE ANALYST Test performed or referred by The [address] [address] ID Date Data Source [id number] 04/22/2019 08:32:00 PM EST [facility] Name: REEFABI [facility] Rec #: [id number] 06 : 1990 Age/Sex: 28F Date of Service: 04/22/19 PHYSICIAN CHART Physician Documentation [facility] Name: Fabi Trevino Age: 28 yrs Sex: Female : 1990 Arrival Date: 04/22/2019 Time: 20:32 Bed 12 Private MD: ED Physician Prince Hobbs HPI: 04/22 21:16 This 28 yrs old Female presents to ER via Walk-In with ml8 complaints of Flu Symptoms. 21:16 Onset: The symptoms/episode began/occurred gradually, 2 ml8 day(s) ago. Severity of symptoms: At their worst the s ymptoms were severe. The patient has not experienced similar symptoms in the past. 28-year-old female complaining of upper respiratory symptoms fevers and body aches that started 2 days ago associated with multiple episode of profuse diarrhea. Has been trying to hydrate and take DayQuil at home but symptoms are getting worse. Positive sick contacts. No medical problems. 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 Daytime Cold Unknown oral Unknown daily 2. Night Time Cold-Flu oral cap daily - PMHx: None; - PSHx: left ACL repair; - Med Reconciliation:: Green Alert: The patient's med list is complete to the best of the n urse's/provider's knowledge. Medications reviewed, completed by nurse using patient's med list. - Immunization history: The patients tetanus immunization is up to date. All immunizations are up to date. Flu vaccine is not up to date. It has been more than one year since last vaccine. - Advance directive: There is no existing advanced directive. Information offered. - Family History:: mother is healthy, Father is healthy. - Social History: Smoking status (Tobacco): Patient uses tobacco products, currently admits to smoking daily . No barriers to communication noted, The patient speaks fluent Yemeni. ROS: 21:17 Constitutional: See HPI. All other systems are negative. ml8 Exam: 21:17 Constitutional: This is a well developed, well nourished ml8 patient who is awake, alert, and in no acute distress. Head/Face: Normocephalic, atraumatic. Neck: Trachea midline, Supple, full range of motion without nuchal rigidity, or vertebral point tenderness. No Meningismus. Cardiovascular: Tachycardic Respiratory: Lungs have equal breath sounds bilaterally, clear to auscultation. No rales, rhonchi or wheezes noted. No increased work of breathing, no retractions or nasal flaring. Abdomen/GI: Soft, non-tender, with normal bowel sounds. No distension or tympany. No guarding or rebound. No evidence of tenderness throughout. Skin: Warm, dry with normal turgor. Normal color with no rashes, no lesions, and no evidence of cellulitis. MS/ Extremity: Pulses equal, no cyanosis. Neurovascular intact. Full, normal range of motion. Neuro: Awake and alert, GCS 15, oriented to person, place, time, and situation. Cranial nerves II-XII grossly intact. Motor strength 5/5 in all extremities. Sensory grossly intact. Cerebellar exam normal. Normal gait. Vital Signs: 20:37 BP 124 / 79; Pulse 114; Resp 22; Temp 100.7(T); Pulse Ox alc 98% ; Weight 90.72 kg; Height 5 ft. 6 in. (167.64 cm); Pain 8/10; 21:10 BP 117 / 74; Pulse 98; Resp 20; Temp 102.0(TE); Pulse Ox rcs 98% on R/A; Pain 5/10; 21:39 BP 93 / 54; Pulse 94; Resp 16; Pulse Ox 100% ; Pain 5/10; rcs 22:20 BP 105 / 72; Pulse 97; Resp 18; Pulse Ox 97% on R/A; Pain arj 5/10; 22:57 BP 110 / 73; Pulse 88; Resp 18; Temp 99.0(TE); Pulse Ox 98% rcs on R/A; Pain 4/10; 20:37 Body Mass Index 32.28 (90.72 kg, 167.64 cm) alc 21:10 sinus pain rcs MDM: 21:07 Patient medically screened. ml8 22:37 ED course: Patient is influenza B+. Feeling better after ml8 meds and IV fluids. Will give a dose of Tamiflu and discharge instructions.. 04/22 20:56 Order name: Respiratory Panel (Use Workup); Complete Time: alc 22:34 04/22 21:11 Order name: Lyme IgG/IgM Ab profile; Complete Time: 22:22 ml8 04/22 20:56 Order name: Collect nasal swab; Complete Time: 20:56 alc 04/22 21:11 Order name: Iv Saline Lock (if Pulse >100); Complete Time: ml8 21:29 Dispensed Medications: 21:29 Drug: NS 0.9% 1000 ml [sodium chloride 0.9 % intravenous alc solution] Route: IV; Rate: 999 mL/hr; Site: left antecubital; 22:57 Follow up: Response: Marked relief of symptoms; No adverse rcs reaction; IV Status: Completed infusion 21:30 Drug: NS 0.9% 1000 ml [sodium chloride 0.9 % intravenous alc solution] Rou te: IV; Rate: 999 mL/hr; Site: left antecubital; 22:57 Follow up: Response: Marked relief of symptoms; No adverse rcs reaction; IV Status: Completed infusion 21:38 Drug: Ibuprofen 800 mg [ibuprofen 800 mg tablet (1 tabs)] alc Route: PO; 22:56 Follow up: Response: No adverse reaction; Pain is decreased rcs 21:39 Drug: Acetaminophen 975 mg [acetaminophen 325 mg tablet (3 alc tabs)] Route: PO; 22:56 Follow up: Response: No adverse reaction; No change in rcs condition 21:39 Drug: Oxymetazoline 2 sprays [oxymetazoline 0.05 % nasal alc mist (2 sprays)] Route: Intranasal; Site: both nares; 22:55 Follow up: Response: No adverse reaction; No change in rcs condition 22:38 Drug: Tamiflu 75 mg [Tamiflu 75 mg capsule (1 caps)] Route: rcs PO; 22:55 Follow up: Response: No adverse reaction; No change in rcs condition Disposition Summary: 04/22/19 22:39 Discharge Ordered Location: Home/Self Care ml8 Condit ion: Good ml8 Diagnosis - Influenza ml8 Followup: ml8 - With: Private Physician - When: 2 - 3 days - Reason: Discharge Instructions: - Discharge Summary Sheet ml8 - Influenza, Adult ml8 Forms: - Work release form ml8 - Medication Reconciliation ml8 Prescriptions: - Ibuprofen 800 mg Oral Tablet - take 1 tablet by ORAL route every 8 hours As needed ml8 take with food; 30 tablet; Refills: 0, Product Selection Permitted - Tamiflu 75 mg Oral Capsule - take 1 capsule by ORAL route every 12 hours for 5 ml8 days; 10 capsule; Refills: 0, Product Selection Permitted - Tylenol 325 mg Oral Tablet - take 2 tablets by ORAL route every 6 hours as ml8 needed; 1 bottle; Refills: 0, Product Selection Permitted Signatures: Dispatcher [employer] EDDulce Maria Ford RN RN Prince Carr, DO DO ml8 Steve De Jesus RN RN rcs Name Value Range Interpretation Code Description Data Stacey rce(s) Supporting Document(s) ID Date Data Source [id number] 04/22/2019 08:32:00 PM [facility] Name: FABI TREVINO [facility] Rec #: [id number] 06 : 1990 Age/Sex: 28F Date of Service: 04/22/19 DISPOSITION SUMMARY Discharge Summary [facility] Name:Fabi Trevino Emergency Department Age:28 yrs Sex:Female :1990 Arrival:04/22/2019 20:32 Departure Date04/22/2019 Departure Time23:07 Private MD: Outcome: Discharge Location: Home/Self Care Condition: Good Chief Complaint: Flu Symptoms Diagnosis: Influenza Prescriptions: Ibuprofen 800 mg Oral Tablet - take 1 tablet by ORAL route every 8 hours As needed take with food; 30 tablet, Tamiflu 75 mg Oral Capsule - take 1 capsule by ORAL route every 12 hours for 5 days; 10 capsule, Tylenol 325 mg Oral Tablet - take 2 tablet by ORAL route every 6 hours as needed; 1 bottle Custom Notes: <span>Drink plenty of fluids, complete full course of Tamiflu.<span> Use Afrin for decongestion<span>. </span></span><span><span>A</span></span >lternate ibuprofen and Tylenol every 3 hours.</span><span> Follow-up with your primary care provider. Return to emergency room if her symptoms worsen.</span>

Attending Physician: Prince Hobbs DO Private MD: Mid Level Provider: Orders: Respiratory Panel (Use Wo rkup), Lyme IgG/IgM Ab profile, NS 0.9%, NS 0.9%, Ibuprofen, Acetaminophen, Collect nasal swab, Iv Saline Lock (if Pulse >100), Oxymetazoline, Tamiflu Discharge Instruction: Discharge Summary Sheet, Influenza, Adult, Work release form, Medication Reconciliation Name Value Range Interpretation Code Description Data Stacey rce(s) Supporting Document(s) ID Date Data Source [id number] 04/22/2019 08:32:00 PM [facility] Name: FABI TREVINO [facility] Rec #: [id number] 06 : 1990 Age/Sex: 28F Date of Service: 04/22/19 NURSE CHART Nurse's Notes [facility] Name: Fabi Trevino Age: 28 yrs Sex: Female : 1990 Arrival Date: 04/22/2019 Time: 20:32 Bed 12 Private MD: Diagnosis: Influenza Presentation: 04/22 20:34 Transition of care: vesta bailey was not received from another alc setting of care. Presenting complaint: Patient states - I started with body aches and diarrhea on Saturday, then the congestion started, my hips and my knees hurt, i do have a cough and fever but my fevers came down with dayquil and nyquil. Patient denies any travel outside the [place] in the last 30 days. Patient denies exposure to sick international traveler in last 30 days. 20:34 Method Of Arrival: Walk-In alc 20:34 Acuity: Urgent - 3 alc Triage Assessment: 20:38 SEPSIS SCREEN: A Confirmed or Suspected Infection is alc Unknown, their temperature is not <96.8 or >100.9, their heart rate is >90, their RR rate is >20, it is unknown if their WBC is <4 or >12, the patient does not have new or unexplained altered mental status. Two or more SIRS or Sepsis criteria is present, provider notified: Prince Hobbs DO. The patient appears ill, The patient is pleasant. The patient reports that he/she has been having chills, feeling like he/she has had a fever, feeling ill, fatigued, having sweats. Patient states the pain is currently a 10 / 10 Patient denies any radiating pain. Respiratory: Airway is patent. Respiratory effort is even, Respiratory pattern is regular, Breath sounds are diminished bilaterally. Patient reports cough that is productive, pain with cough. GI: The patient reports diarrhea, intolerance of food, nausea, tolerance of fluids. 20:43 EENT: The patient reports nasal congestion nasal discharge. 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 Daytime Cold Unknown oral Unknown daily 2. Night Time Cold-Flu oral cap daily - PMHx: None; - PSHx: left ACL repair; - Med Reconciliation:: Green Alert: The patient's med list is complete to the best of the nurse's/provider's knowledge. Medications reviewed, completed by nurse using patient's med list. - Immunization history: The patients tetanus immunization is up to date. All immunizations are up to date. Flu vaccine is not up to date. It has been more than one year since last vaccine. - Advance directive: There is no existing advanced directive. Information offered. - Family History:: mother is healthy, Father is healthy. - Social History: Smoking status (Tobacco): Patient uses tobacco products, currently admits to smoking daily . No barriers to communication noted, The patient speaks fluent Yemeni. Screenin:42 AUDIT 1. How often do you have a drink containing alcohol? alc Monthly or less (1 point) 2. How many standard drinks containing alcohol do you have on a typical day when drinking? 3 or 4 (1 point) 3. How often do you have five or more drinks on one occasion? Less than monthly (1 point) Total Initial Score: Female <3, screening complete, low risk. Drug Abuse Screening Test: 1. Have you used drugs other than those required for medical reasons? No (0 points), screen is complete, no risk. Abuse screen: Denies threats or abuse. Denies injuries from another. Nutritional screening: No deficits noted. The patient's gait is impaired (20 points), cannot walk without assitance. The patient tries to walk without assistance despite being advised to ask for help or use an assistive device to ambulate (30 points). The patient is at HIGH RISK for falls (Nassar Scale = >45 pts). Fall prevention measures have been instituted. Patient and Family have been edu cated on fall prevention program and strategies. 21:10 Tuberculosis screening: No symptoms or risk factors rcs identified. Never had TB. Exposure risk/Travel Screening: None identified. Assessment: 21:06 See Triage Assessment. The patient appears to have some rcs mild discomfort, to be uncomfortable, well nourished, well groomed, The patient is behaving appropriately according to age, cooperative, pleasant, The patient reports that he/she has been having chills, for 12-24 hours, feeling like he/she has had a fever, for between 12 and 24 hours, feeling ill, for between 12 and 24 hours, having sweats, for between 12 and 24 hours. Neuro: No Neuro Deficit is noted. EENT: The patient reports nasal congestion nasal discharge that is watery photophobia since yesterday. Cardiovascular: No deficits noted. Respiratory: Breath sounds are clear bilaterally. GI: No deficits noted. : No deficits noted. Vital Signs: 20:37 BP 124 / 79; Pulse 114; Resp 22; Temp 100.7(T); Pulse Ox alc 98% ; Weight 90.72 kg; Height 5 ft. 6 in. (167.64 cm); Pain 8/10; 21:10 BP 117 / 74; Pulse 98; Resp 20; Temp 102.0(TE); Pulse Ox rcs 98% on R/A; Pain 5/10; 21:39 BP 93 / 54; Pulse 94; Resp 16; Pulse Ox 100% ; Pain 5/10; rcs 22:20 BP 105 / 72; Pulse 97; Resp 18; Pulse Ox 97% on R/A; Pain arj 5/10; 22:57 BP 110 / 73; Pulse 88; Resp 18; Temp 99.0(TE); Pulse Ox 98% rcs on R/A; Pain 4/10; 20:37 Body Mass Index 32.28 (90.72 kg, 167.64 cm) alc 21:10 sinus pain rcs ED Course: 20:33 Patient arrived in ED. micah 20:37 Triage completed. alc 20:39 Arm band placed on right wrist. Patient has correct armband alc on for positive identification. 20:44 Prince Hobbs DO is Attending Physician. ml8 20:46 Steve De Jesus, RN is Primary Nurse. rcs 21:11 The vesta bailey is having no apparent distress. Resting rcs quietly. Awaiting lab results. 21:11 Pulse on is on. NIBP on. rcs 21:11 No procedures ordered. A swab to test the patient for rcs influenza A/B was collected by Prince Hobbs DO A swab for the respiratory panel was collected by Prince Hobbs DO. 21:40 Labs drawn by ED staff. was sent per order to lab. Inserted rcs saline lock: 18 gauge in left antecubital area. 22:25 Critical test result: Influenza B +. Result Repeated and alc Verified to Prince Hobbs DO, MD was notified at 22:25. 22:58 Radiology:. rcs 22:58 Discontinued lock intact, bleeding controlled, pressure rcs dressing applied, No redness/swelling at site. 22:59 Radiology: None performed. rcs Administered Medications: 21:29 Drug: NS 0.9% 1000 ml [sodium chloride 0.9 % intravenous alc solution] Route: IV; Rate: 999 mL/hr; Site: left antecubital; 22:57 Follow up: Response: Marked relief of symptoms; No adverse rcs reaction; IV Status: Completed infusion 21:30 Drug: NS 0.9% 1000 ml [sodium chloride 0.9 % intravenous alc solution] Route: IV; Rate: 999 mL/hr; Site: left antecubital; 22:57 Follow up: Response: Marked relief of symptoms; No adverse rcs reaction; IV Status: Completed infusion 21:38 Drug: Ibuprofen 800 mg [ibuprofen 800 mg tablet (1 tabs)] alc Route: PO; 22:56 Follow up: Response: No adverse reaction; Pain is decreased rcs 21:39 Drug: Acetaminophen 975 mg [acetaminophen 325 mg tablet (3 alc tabs)] Route: PO; 22:56 Follow up: Response: No adverse reaction; No change in rcs condition 21:39 Drug: Oxymetazoline 2 sprays [oxymetazoline 0.05 % nasal alc mist (2 sprays)] Route: Intranasal; Site: both nares; 22:55 Follow up: Response: No adverse reaction; No change in rcs condition 22:38 Drug: Tamiflu 75 mg [Tamiflu 75 mg capsule (1 caps)] Route: rcs PO; 22:55 Follow up: Response: No adverse reaction; No change in rcs condition Outcome: 22:39 Discharge ordered by . ml8 22:59 Patient verbalized understanding of disposition rcs instructions. Patient has no functional deficits. Patient awake and alert. Oriented to person, place and time. 22:59 Patient discharged to home ambulatory, with friend. 22:59 Condition: good Condition: stable Condition: improved 22:59 Discharge instructions given to patient, Patient was instructed on discharge instructions, follow up and referral plans. medication usage, The patient demonstrated understanding of instructions, medications, Prescriptions given X 1. 22:59 Vitals are Complete in accordance with Emergency Department Policy. 23:07 Patient left the ED. rcs 04/23 09:31 24 hour call back attempted, no answer gato Signatures: Rachana Sarabia RN RN md1 Dulce Maria Bryan RN Prince Tamayo alc, DO ml8 Kylah Layne RN RN arj Sultzer, William, Steve Sanchez, RN TEJA benitez Name Value Range Interpretation Code Description Data Stacey rce(s) Supporting Document(s) ID Date Data Source [id number] 04/22/2019 10:18:00 PM [facility] Name Value Range Interpretation Code Description Data Stacey rce(s) Supporting Document(s) Lyme IgG Ab Negative Normal (applies to non-numeric resu lts) [facility] Lyme IgM Ab Negative Normal (applies to non-numeric resu lts) [facility] Interpretation: No detectable antibodie s to B. burgdorferi detected. A negative result does not rule out the possibility of B. burgdorferi infection. Patients in early stages of infection or who have undergone antibiotic therapy may not produce measureable antibodies. If recent exposure is suspected, a second sample should be collected in 4-6 weeks. ID Date Data Source [id number] 04/22/2019 10:26:00 PM [facility] Methodology: Multiplexed PCR Refer ence Range: None detected Name Value Range Interpretation Code Description Data Stacey rce(s) Supporting Document(s) Procedure Social History Code Duration Value Status Description Data Source(s ) Smoking 04/26/2020 12:00:00 AM EST Unknown if ever smoked comp leted Unknown if ever smoked [facility] ([facility]) Smoking 04/13/2020 12:00:00 AM EST Unknown if ever smoked comp leted Unknown if ever smoked [facility] ([facility]) Smoking 03/22/2020 12:00:00 AM EST Unknown if ever smoked comp leted Unknown if ever smoked [facility] ([facility]) Smoking 03/21/2020 12:00:00 AM EST Patient is a former smoker completed Patient is a former smoker [facility] ([facility]) Smoking 02/24/2020 12:00:00 AM EST Never smoker completed Never s moker [facility] ([facility]) Vital Signs ID Date Data Source UNK Name Value Range Interpretation Code Description Data Source(s) Body mass index (BMI) [Ratio] 33.7 kg/m2 33.7 k g/m2 [facility] ([facility]) Body height 67 [in_i] 67 [in_i] [facility] ([facility]) 5'7" Body weight 215.00 [lb_av] 215.00 [lb_av] MEDEN T ([facility], [facility]) Body temperature 98.1 [degF] 98.1 [degF] MEDENT ([facility]) Oxygen saturation in Arterial blood by Pulse oximetry 98 % 98 % [facility] ([facility]) Respiratory rate 16 /min 16 /min [facility] ( [facility]) Heart rate 85 /min 85 /min MEDENT ([facility], [facility]) Diastolic blood pressure 79 mm[Hg] 79 mm[Hg] MEDENT ([facility]) Systolic blood pressure 118 mm[Hg] 118 mm[Hg] M EDENT ([facility]) Body mass index (BMI) [Ratio] 33.99 kg/m2 Overweight 33.99 kg/m2 NextGen ([facility]) Diastolic blood pressure 70 mm[Hg] 70 mm[Hg] [facility] ([facility]) Systolic blood pressure 110 mm[Hg] 110 mm[Hg] N extGen ([facility]) Body weight 98.430 kg 98.430 kg [facility] ([facility] Body height 170.18 cm 170.18 cm [facility] ([facility]) Body mass index (BMI) [Ratio] 36.1 kg/m2 36.1 k g/m2 MEDENT ([facility]) Body height 65 [in_i] 65 [in_i] MEDENT ([facility], [facility]) 5'5" Body weight 217.00 [lb_av] 217.00 [lb_av] MEDEN T ([facility], [facility]) Body temperature 98.5 [degF] 98.5 [degF] MEDENT ([facility]) Oxygen saturation in Arterial blood by Pulse oximetry 99 % 99 % MEDENT ([facility]) Respiratory rate 18 /min 18 /min [facility] ( [facility], [facility]) Heart rate 97 /min 97 /min MEDENT ([facility], [facility]) Diastolic blood pressure 68 mm[Hg] 68 mm[Hg] MEDENT ([facility]) Systolic blood pressure 112 mm[Hg] 112 mm[Hg] M EDENT ([facility]) Body mass index (BMI) [Ratio] 33.99 kg/m2 Overweight 33.99 kg/m2 [facility] ([facility]) Diastolic blood pressure 76 mm[Hg] 76 mm[Hg] [facility] ([facility]) Systolic blood pressure 120 mm[Hg] 120 mm[Hg] N extGen ([facility]) Body weight 98.430 kg 98.430 kg [facility] ([facility]) Body height 170.18 cm 170.18 cm [facility] ([facility]) Body mass index (BMI) [Ratio] 35.55 kg/m2 Overweight 35.55 kg/m2 [facility] ([facility]) Diastolic blood pressure 93 mm[Hg] 93 mm[Hg] [facility] ([facility]) Systolic blood pressure 130 mm[Hg] 130 mm[Hg] N extGen ([facility] Body weight 102.965 kg 102.965 kg [facility] ([facility]) Body height 170.18 cm 170.18 cm [facility] ([facility]) Patient Treatment Plan of Care Planned Activity Planned Date Details Description Data Source (s) Etonogestrel 68 MG Drug Implant [Nexplanon] 09/18/2019 12:00:00 AM EDT [facility] ([facility]) Levonorgestrel 1.5 MG Oral Tablet [EContra] 09/18/2019 12:00:00 AM EDT [facility] ([facility]) Levonorgestrel [id number] MG/HR Drug Implant [Mirena] [facility] ([facility])
--- OUTSIDE RECORDS SUMMARY | 2020-05-05 07:10 | CCD | Continuity of Care Document ---
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 Role Phone [employer] AUTM [phone] Problems Description No Information Available Social History [...] CPT Code Status Date Vaccine Lot # [id number] Given 11/18/2019 PPD- TB Intradermal Test 340 768 Vital Signs Date Vital Result Comment 03/21/2020 [...] Date Location Provider Dx Diagnosis Office Visit 11/20/2019 5:30p Main Office Genoveva [...] tuberculosis Genoveva Beth NP Plan of Treatment 03/21/2020 - Genoveva Beth NP* J06.9 Acute upper respiratory infection, unspecified* Comments:* likely viral etiology supportive carerest/time/fluidsRTC in 4-5 days if sx persist/worsen or with PCPpatient v/u & agrees to plan * Z20.828 Contact with and (suspected) exposure to other viral communicable diseases* Comments:* tested for COVID-19 today via [facility] & Influenza A/B, all results were reported as negativelikely other viral etiology. infectious course & use of proper protective equipment, adequate handwashing, wearing a mask & keeping 6+ feet distance from others reviewed with patient. advised supportive care, rest/time/fluidsf/u PRNpatient v/u & agrees to plan * B00.1 Herpesviral vesicular dermatitis* Comments:* trial OTC analgesics such as abreva. Sx just began, patient has been tx with neosporin. States it usually occurs 1x/year. Functional Status Description No Information Available Mental Status Description No Information Available Referrals Description No Information Available
--- OUTSIDE RECORDS SUMMARY | 2020-05-05 07:10 | CCD | Continuity of Care Document ---
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 Height/Weight CVR Business Administration Instructor.Svc. Contraceptive CVR Business Administration Instructor.Svc. Other CVR Business Administration Instructor.Svc. STI / H URINE TEST Results Test Name Date and Time Measure Units Reference Range Abnormal Flag St atus Comments Panel Description: High Sensitivity Urine Test Fi nal High Sensitivity Urine Test 11:24:31 N egativeLot: [id number]: 04/07/2021 Final Advance Directives Directive Yes / No Effective Date File Name No Information Encounters Encounter Description Practice Location Reason(s) For Visit Diagnose s Date Provider Providers Copied on Encounter [facility], [address] [place] [address], [address] [place] [address], tel:[phone] MILKA [place] Encounter for pregn thomas test, result negativeLow grade intrepith lesion cyto smr crvx (LGSIL) Mengjarek Kohli. [address] [place] [address], [id number], . tel:[phone] Referring Provider: Kamilla Motta, [address] [place] [address], [address] [place] [address]. tel:[phone] [facility] [place], [address] [place] [address], [id number], tel:[phone] [facility] Bernabe Human immunodeficie ncy virus [HIV] counselingOther sex counselingEncounter for oth general cnsl and advice on contraceptionEncntr for industrial spraypainter exam (general) (routine) w/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Encntr screen for infections w sexl mode of transmissEnctr srvlnc implantable subdermal contraceptiveBody mass index (BMI) 33.0-33.9, adultAnxiety disorder, unspecified Pravin Pham. [address] [place], [place], [id number]. tel:[phone] Referring Provider: Vero Costello, [address] [place] [address], [id number]. tel:[phone] [facility], [address] [place] [address], [id number], [place] tel:[phone] [facility] [place] Human immunodeficie ncy virus [HIV] counselingOther sex counselingEncounter for oth general cnsl and advice on contraceptionEncounter for test, result negativeEncounter for removal of intrauterine contraceptive deviceEnctr for init prescription of implntbl subdermal contracepEncounter for prescription of emergency contraceptionEncntr screen for infections w sexl mode of transmissHigh risk heterosexual behavior Tata Mendoza. [address] [place] [address], [id number], [place]. tel:[phone] Referring Provider: Kelly Payton, [address] [place] [address], [id number]. tel:[phone] [facility], [address] [place] [address], [id number], [place] tel:[phone] P[facility] [place] Human immunodeficie ncy virus [HIV] counselingEncntr screen for infections w sexl mode of transmissOther sex counselingDysuriaEncounter for oth general cnsl and advice on contraception Lisette Urban. [address] [place] [address], [id number], [place]. tel:[phone] Referring Provider: Rajni Knox, [address] [place] [address], [id number]. tel:[phone] [facility], [address] [place] [address], [id number], [place] tel:[phone] [facility] [place] Encounter for presc ription of emergency contraception Lisette Urban. [address] [place] [address], [id number], [place]. tel:[phone] [facility], [address] [place] [address], [id number], tel:[phone] MILKA Kidd Encntr screen for i nfections w sexl mode of transmissHuman immunodeficiency virus [HIV] counselingDysuriaBody mass index (BMI) 33.0-33.9, adultEncounter for oth general cnsl and advice on contracepti onHigh risk heterosexual behaviorAcute vaginitisAcute cystitis without hematuriaOther specified noninflammatory disorders of vagina Lianna Randle. [address] [place] [address], [id number], . tel:[phone] Referring Provider: Razia Dsouza, [address] [place] [address], [id number]. tel:[phone] Family History Family Member Diagnosis Age At Onset 1st degree relative No hx of cancer of breast, colon, endome trium or ovary 1st degree relative No hx of venous thromboembolism 1st degree relative No hx of coronary heart disease (female <65, male <55) 1st degree relative No hx of osteoporosis Immunizations Vaccine Date Status Comments No Information Payers Payer name Insurance type Covered green party ID Authorization(s ) [facility] [id number] [facility] [id number] Social History Type Description Quantity Date Captured Comments Alcohol Use Details Unknown Caffeine Use Details Unknown Tobacco Use Status No Information Smoking Status Never smoker Sex Female Vital Signs Date / Time: Height Weight BMI Pulse Rate Blood Pressure Temperatu re Respiratory Rate Body Surface Area Head Circumference BMI percentile Pulse Ox In haled Ox 11:37 AM 67.00 in 217.00 lbs 33.99 kg/meter(2) 110/7 0 mm[Hg] Chief Complaint And Reason For Visit No [...] (BMI) 33.0-33.9, adult Assessments Type Assessment Date assessment Encounter for test, result neg ative assessment Low grade intrepith lesion cyto smr crvx (LGSIL) Goals Health Concern Goal Type Priority Status Date No Information Medical Equipment Description Device [place] Device Identifier Effective Adair es (start - stop) Status No Information Mental Status Date Cognitive Assessment Normal Orientation Health Concerns Observation Date No Information Concern Status Date No Information Physical Examination Exam Findings Details Neurological Normal Level of consciousne ss - Normal. Orientation - Normal. Balance & gait - Normal. Genitourinary Normal Urethral meatus - No rmal. Urethra - Normal. External genitalia - Normal. Glands - Normal. Perineum - Normal. Anus - Normal. Vagina - Normal. Cervix - Normal.
[2020-05-05] MEDS ORDERED: CYCL-707 PO (07:43)
[2020-05-05] MEDS ORDERED: NAPR-837 PO (07:43)
[2020-05-05 07:55] VITALS: BP 125/77
== END 2020-05-05 07:59 | disposition home or self-care (01) ==
LOC: M ED 05:44
DX: M43.6 Torticollis (principal)
CPT/HCPCS: 96372; 99283; J1885

== ENCOUNTER → 2020-06-04 | Outpatient (REF) | payer BC ==
[~2020-06-04] MED LIST: CYCL-707 PO; NAPR-837 PO
== END ==
LOC: M LAB REF 17:46
PROVIDERS: ATTEND Physician Assistant
DX: B37.3 Candidiasis of vulva and vagina (principal)

== ENCOUNTER → 2020-07-19 | Outpatient (CLI) | payer BC ==
--- NOTE | 2020-07-19 12:37 | REP ---
INDICATION: LT BREAST MASS,ENLARGED LT AXILLARY LYMPH NODE. COMPARISON: None. TECHNIQUE: MLO and CC views bilateral breasts performed with tomosynthesis. Additional spot-compression views performed for a palpable lump in the upper-outer quadrant of the left breast. Focused left breast ultrasound performed at that location. FINDINGS: Moderate fibroglandular tissue is present bilaterally in a symmetrical pattern. I see no evidence of mass, nodule or architectural distortion. No clustered microcalcifications are seen. Focused left breast ultrasound is performed at the site of the reported palpable lump in the upper-outer quadrant of the left breast. No discrete cystic or solid nodule is seen. The Volpara volumetric breast density pattern is B. IMPRESSION: BIRADS/ACR category 1, negative. No mass or clustered microcalcifications. There is no mammographic or sonographic evidence of a mass at the site of the reported palpable abnormality upper-outer quadrant left breast. A negative mammogram and ultrasound should not deter biopsy if there is a clinically suspicious palpable mass present. Clinical correlation and follow-up is recommended. This patient's Tyrer-Cuzick lifetime breast cancer risk assessment score is 15.7%. This mammogram was interpreted with the aid of an FDA-approved computer-aided detection system. The patient states she had a clinical breast exam in June 2020. The patient letter being requested is M2. RECOMMENDATION: Clinical correlation and follow-up recommended. <Electronically signed by Josef Sim > 07/19/20 [id number]
== END ==
LOC: M WHC 11:01
PROVIDERS: ATTEND Nurse Practitioner Family
DX: N63.20 Unspecified lump in the left breast, unspecified quadrant (principal); R59.0 Localized enlarged lymph nodes
CPT/HCPCS: 76642; 77066; G0279

== ENCOUNTER → 2020-08-20 | Outpatient (CLI) | payer BC ==
[2020-08-20 09:33] LABS: BASO % 0.6 % (0.0-1.0); EOS # 0.1 10^3/uL (0.0-0.5); EOS % 1.1 % (0.0-3.0); HEMATOCRIT 44.4 % (36.0-47.0); HEMOGLOBIN 13.9 g/dl (12.0-15.5); LYMPH # 1.8 10^3/uL (1.5-5.0); LYMPH % 27.6 % (24.0-44.0); MEAN CORPUSCULAR HEMOGLOBIN 27.6 pg (27.0-33.0); MEAN CORPUSCULAR HGB CONC 31.3 g/dl (32.0-36.5); MEAN CORPUSCULAR VOLUME 88.3 fl (80.0-96.0); MONO # 0.4 10^3/uL (0.0-0.8); MONO % 5.9 % (2.0-8.0); NEUTROPHILS # 4.3 10^3/uL (1.5-8.5); NEUTROPHILS % 64.5 % (36.0-66.0); PLATELET COUNT, AUTOMATED 328 10^3/uL (150-450); RED BLOOD COUNT 5.03 10^6/uL (4.00-5.40); WHITE BLOOD COUNT 6.6 10^3/uL (4.0-10.0)
[2020-08-20 09:56] LABS: PERCENT SATURATION 19.5 % (13.2-45.0)
== END ==
LOC: M LAB 08:40
PROVIDERS: ATTEND Internal Medicine Gastroenterology
DX: K62.5 Hemorrhage of anus and rectum (principal)

== ENCOUNTER → 2020-09-21 | Outpatient (CLI) | payer BC ==
[~2020-09-21] MED LIST changes: +NEXP1IMP SC; +TRAZ-189
== END ==
LOC: M LABSMTC 10:08
PROVIDERS: ATTEND Anesthesiology
DX: Z01.818 Encounter for other preprocedural examination (principal)

== ENCOUNTER 2020-09-26 10:42 | Day surgery (SDC) | payer BC ==
[~2020-09-26] VITALS: Ht 167.6 cm; Wt 95.3 kg
[~2020-09-26 10:42] MED LIST changes: +NS 1,000 ML IV ONE
[2020-09-26] MEDS ORDERED: propofoL 200 MG/20 ML VIAL As Ordered ONE ×2 (11:43→12:03)
[2020-09-26] MEDS ORDERED: LIDOCAINE 2% 100MG/5ML SDV (FOR ANES.) As Ordered ONE (11:43)
--- NOTE | 2020-09-26 12:24 | ROOR ---
Patient Name: Fabi Trevino Procedure Date: 09/26/2020 11:51 AM Date of : 1990 Age: 30 Room: [facility] Gender: Female Note Status: Finalized Procedure: Colonoscopy Indications: Hematochezia, Change in bowel habits Providers: To Morales MD Referring MD: Leonard Saleh Requesting Provider: Medicines: Monitored Anesthesia Care Complications: No immediate complications. Procedure: Pre-Anesthesia Assessment: - Prior to the procedure, a History and Physical was performed, and patient medications and allergies were reviewed. The patient is competent. The risks and benefits of the procedure and the sedation options and risks were discussed with the patient. All questions were answered and informed consent was obtained. Patient identification and proposed procedure were verified by the physician, the nurse and the anesthesiologist in the procedure room. Mental Status Examination: alert and oriented. Airway Examination: normal oropharyngeal airway and neck mobility. Respiratory Examination: clear to auscultation. CV Examination: normal. Prophylactic Antibiotics: The patient does not require prophylactic antibiotics. Prior Anticoagulants: The patient has taken no previous anticoagulant or antiplatelet agents. ASA Grade Assessment: II - A patient with mild systemic disease. After reviewing the risks and benefits, the patient was deemed in satisfactory condition to undergo the procedure. The anesthesia plan was to use monitored anesthesia care (MAC). Immediately prior to administration of medications, the patient was re-assessed for adequacy to receive sedatives. The heart rate, respiratory rate, oxygen saturations, blood pressure, adequacy of pulmonary ventilation, and response to care were monitored throughout the procedure. The physical status of the patient was re-assessed after the procedure. The Colonoscope was introduced through the anus and advanced to the terminal ileum, with identification of the appendiceal orifice and IC valve. The colonoscopy was performed without difficulty. The patient tolerated the procedure well. The quality of the bowel preparation was good. The terminal ileum, ileocecal valve, appendiceal orifice, and rectum were photographed. Scope insertion time was 2 minutes. Scope withdrawal time was 8 minutes. The total duration of the procedure was 12 minutes. Findings: The perianal and digital rectal examinations were normal. The terminal ileum appeared normal. Normal mucosa was found in the entire colon. Biopsies for histology were taken with a cold forceps from the right colon, left colon and rectosigmoid colon for evaluation of microscopic colitis. Verification of patient identification for the specimen was done by the physician and nurse using the patient's name, date and medical record number. Estimated blood loss was minimal. Non-bleeding external and internal hemorrhoids were found during retroflexion. The hemorrhoids were small. Impression: - The examined portion of the ileum was normal. - Normal mucosa in the entire examined colon. Biopsied. - Non-bleeding external and internal hemorrhoids. Recommendation: - Patient has a contact number available for emergencies. The signs and symptoms of potential delayed complications were discussed with the patient. Return to normal activities tomorrow. Written discharge instructions were provided to the patient. - High fiber diet. - Continue present medications. - Use original regular Metamucil one tablespoon PO daily. - Await pathology results. - Repeat colonoscopy at age 52 for screening purposes. - Telephone GI clinic for pathology results in 2 weeks. - Return to primary care physician. Procedure Code(s): --- Professional --- 28305, Colonoscopy, flexible; with biopsy, single or multiple Diagnosis Code(s): --- Professional --- K64.8, Other hemorrhoids K92.1, Melena (includes Hematochezia) R19.4, Change in bowel habit CPT copyright 2019 [employer]. All rights reserved. The codes documented in this report are preliminary and upon junior engineer review may be revised to meet current compliance requirements. To Morales MD To Morales MD 09/26/2020 12:24:03 PM Electronically signed by To Morales MD Number of Addenda: 0 Note Initiated On: 09/26/2020 11:51 AM Estimated Blood Loss: Estimated blood loss was minimal.
[2020-09-26 12:40] VITALS: BP 109/63
== END 2020-09-26 12:51 | disposition home or self-care (01) ==
LOC: M OPP 10:42
PROVIDERS: ATTEND Internal Medicine Gastroenterology
DX: K64.8 Other hemorrhoids (principal); K92.1 Melena; R19.4 Change in bowel habit; R10.31 Right lower quadrant pain; Z79.899 Other long term (current) drug therapy; Z88.0 Allergy status to penicillin

== ENCOUNTER → 2020-11-24 | Outpatient (REF) | payer BC ==
[~2020-11-24] MED LIST changes: -NS 1,000 ML IV ONE
[2020-11-24 17:28] LABS: TOTAL PROTEIN,RANDOM URINE 7.4 MG/DL (0.0-12.0)
[2020-11-24 18:24] LABS: APPEARANCE, URINE HAZY (CLEAR); BACTERIA, URINE AUTO NEGATIVE (NEGATIVE); BILIRUBIN, URINE AUTO NEGATIVE (NEGATIVE); BLOOD, URINE BLOOD 2+ (NEGATIVE); COLOR, URINE YELLOW (YELLOW); GLUCOSE, URINE (UA) AUTO NEGATIVE (NEGATIVE); KETONE, URINE AUTO NEGATIVE (NEGATIVE); LEUKOCYTE ESTERASE, URINE AUTO TRACE (NEGATIVE); MUCUS, URINE SMALL (NEGATIVE); NITRITE, URINE AUTO NEGATIVE (NEGATIVE); PROTEIN, URINE AUTO NEGATIVE (NEGATIVE); RBC, URINE AUTO 0 /HPF (0-3); SPECIFIC GRAVITY URINE AUTO 1.014 (1.002-1.035); SQUAMOUS EPITHELIAL CELL UR AU 8 /HPF (0-6); UROBILINOGEN, URINE AUTO 0.2 mg/dL (0.0-2.0); WBC, URINE AUTO 1 /HPF (0-3)
== END ==
LOC: M SFHCRHEU 15:46
PROVIDERS: ATTEND Internal Medicine
DX: R76.8 Other specified abnormal immunological findings in serum (principal); M79.10 Myalgia, unspecified site; R53.82 Chronic fatigue, unspecified

== ENCOUNTER → 2021-04-16 | Outpatient (REF) | payer OTHER | LOC: M WUC 19:14 | PROVIDERS: ATTEND Nurse Practitioner Family | DX: R30.0 Dysuria (principal) ==

== ENCOUNTER → 2021-08-09 | Outpatient (REF) | payer OTHER | LOC: M LAB REF 12:14 | PROVIDERS: ATTEND Internal Medicine | DX: J02.9 Acute pharyngitis, unspecified (principal) ==

== ENCOUNTER 2022-03-21 14:55 | Emergency (ER) | payer OTHER ==
[~2022-03-21] VITALS: Ht 167.6 cm; Wt 104.8 kg
[~2022-03-21 14:55] MED LIST changes: +ETON68IM SC; -NEXP1IMP SC
[2022-03-21] MEDS ORDERED: BUPR150T12 (15:08)
[2022-03-21] MEDS ORDERED: diphenhydrAMINE 25MG CAP PO ONE (18:05)
[2022-03-21] MEDS ORDERED: ACETAMINOPHEN 500 MG TAB PO ONE (18:05)
[2022-03-21] MEDS ORDERED: IBUPROFEN 400MG TAB PO ONE (18:05)
[2022-03-21 19:11] VITALS: BP 127/65
== END 2022-03-21 19:37 | disposition home or self-care (01) ==
LOC: M ED 14:55
DX: G43.909 Migraine, unspecified, not intractable, without status migrainosus (principal); R05.3 Chronic cough; F10.10 Alcohol abuse, uncomplicated; Z88.0 Allergy status to penicillin; Z79.899 Other long term (current) drug therapy